=== PATIENT | female | born 1940 | race Caucasian/White ===

== ENCOUNTER 2021-10-29 09:42 | Outpatient (CLI) | payer MEDICAID ==
--- NOTE | 2021-10-29 11:10 | Cat Scan Report ---
CT ABDOMEN AND PELVIS WITHOUT CONTRAST INDICATION / CLINICAL INFORMATION: R31.29 MICROSCOPIC HEMATURIA. TECHNIQUE: Axial CT images were obtained through the abdomen and pelvis without IV contrast. All CT scans at this location are performed using CT dose reduction for ALARA by means of automated exposure control. COMPARISON: None available. FINDINGS: LOWER CHEST: Mild left basilar scarring or subsegmental atelectasis. No acute process. LIVER: No significant abnormality. GALLBLADDER/BILIARY: No significant abnormality or evidence for biliary obstruction. PANCREAS: No significant abnormality. SPLEEN: No significant abnormality. ADRENALS: No significant abnormality. KIDNEYS/URETERS: Bilateral punctate nephrolithiasis with the largest calculus measuring 3 mm in the l eft midpole. Small right lateral renal cortical cysts, one of which contains a tiny wall calcificatio n. No suspicious solid mass. Negative for ureteral calculus or hydronephrosis. GI: No acute bowel inflammation, obstruction or evidence for ischemia. APPENDIX: No significant abnormality. PERITONEUM: No pneumoperitoneum, free peritoneal fluid or loculated fluid collection. LYMPH NODES: No pathologic lymphadenopathy. AORTA / ARTERIES: Mild atherosclerotic calcification without acute abnormality. URINARY BLADDER: No significant abnormality. REPRODUCTIVE ORGANS: Questionable mild prolapse of the pelvic floor for which correlation with clinic al exam may be warranted. The uterus and adnexa are otherwise unremarkable for age. SKELETAL SYSTEM: Lumbar degenerative spondylosis without acute or destructive osseous process. ADDITIONAL FINDINGS: Fat-containing. Umbilical hernia without bowel involvement. IMPRESSION: 1. No acute abdominopelvic process. 2. Bilateral nonobstructive nephrolithiasis and small right renal cysts. 3. Other mild chronic incidental findings, as detailed above. Signer Name: Antonio Kelly MD Signed: 10/29/2021 11:05 AM Workstation Name: [id number]
== END 2021-10-29 09:43 | disposition home or self-care (01) ==
LOC: CT 09:42
PROVIDERS: ATTEND Urology
DX: N20.0 Calculus of kidney (principal); I70.0 Atherosclerosis of aorta; J98.4 Other disorders of lung; K42.9 Umbilical hernia without obstruction or gangrene; R31.29 Other microscopic hematuria
CPT/HCPCS: 74176